=== PATIENT | male | born 1985 | race African-American/Black ===

== ENCOUNTER 2024-01-25 09:10 | Emergency (ER) | payer OTHER ==
[~2024-01-25] VITALS: Ht 177.8 cm; Wt 122.5 kg
[2024-01-25 09:16] VITALS: PULSE 86; RESP 16; TEMP 98.6; O2SAT 96
== END 2024-01-25 09:39 | disposition home or self-care (01) ==
LOC: ER 09:15
DX: R10.33 Periumbilical pain (principal); K43.9 Ventral hernia without obstruction or gangrene
CPT/HCPCS: 99282